=== PATIENT | male | born 1985 | race Caucasian/White ===

== ENCOUNTER 2019-04-03 17:16 | Emergency (ER) | payer OTHER ==
[~2019-04-03] VITALS: Ht 167.6 cm; Wt 149.7 kg
[2019-04-03] MEDS ORDERED: ALLOPURINOL 10100 M1 PO (17:22)
[2019-04-03 18:05] LABS: ABSOLUTE NEUTROPHILS 6.8 thou/uL (1.4-8.2); BASOPHILS 0.9 % (0.0-2.0); EOSINOPHILS 1.4 % (0.0-3.0); HEMATOCRIT 40.6 % (42.0-52.0); HEMOGLOBIN 13.2 gm/dL (14.0-18.0); LYMPHOCYTES 32.2 % (24.0-44.0); MCH 27.6 pg (26.0-34.0); MCHC 32.4 g/dL (28.0-37.0); POLYS 59.5 % (36.0-66.0); RBC 4.78 mil/uL (4.50-6.00); RDW 14.2 % (10.5-14.5); WBC 11.4 thou/uL (4.0-11.0)
[2019-04-03 18:17] LABS: ANION GAP 9 mmol/L (7-16); BUN 14 mg/dL (7-18); CALCIUM 9.1 mg/dL (8.5-10.1); CHLORIDE 100 mmol/L (98-107); CO2 27 mmol/L (21-32); CREATININE 1.1 mg/dL (0.7-1.3); GLUCOSE 90 mg/dL (74-106); POTASSIUM 3.9 mmol/L (3.5-5.1); SODIUM 136 mmol/L (136-145)
[2019-04-03 18:27] LABS: ALBUMIN 3.7 g/dL (3.4-5.0); SGOT 34 U/L (15-37); SGPT 49 U/L (30-65); TOTAL BILIRUBIN 0.3 mg/dL (<0.1-1.0); TOTAL PROTEIN 8.2 g/dL (6.4-8.2); TROPONIN-I <0.06 ng/mL (<0.06)
[2019-04-03 18:36] LABS: PLATELET COUNT 321 thou/uL (150-400)
[2019-04-03 19:26] VITALS: BP 120/62
[2019-04-03] MEDS ORDERED: CARAFATE 1 GM TA1 GM PO (20:17)
--- NOTE | 2019-04-04 08:03 | EKG ---
[place] [address] [place] [address] ELECTROCARDIOGRAM REPORT Name: JEY LAY Room #: [facility] ROSALINDA German#: [id number] Admission: 04/03/19 Attend Phys: Discharge: 04/03/19 Date of : 89 Report #: [id number] THIS REPORT FOR: //name// [facility] ED Test Date: 2019-04-03 Test Time: 17:21:31 Pat Name: JEY LAY Department: Room: Gender: [employer] Former Supervisor: TJ : 1985 Requested By: Rob Werner Order Number: [id number] MD: Placido Hawthorne Measurements Intervals [place] Rate: 78 P: 37 VT: 151 QRS: 37 QRSD: 98 T: 16 QT: 348 QTc: 397 Interpretive Statements Sinus rhythm Normal tracing No previous ECG available for comparison Electronically Signed On 04-04-2019 8:02:58 CDT by Placido Hawthorne [email or web address] <ELECTRONICALLY SIGNED> By: Placido Hawthorne MD, [facility] 04/04/19 0802 1721 1721 Placido Hawthorne MD, FACC /EPI
== END 2019-04-03 20:31 | disposition home or self-care (01) ==
LOC: ER 17:16
PROVIDERS: Emergency Medicine
DX: R07.9 Chest pain, unspecified (principal); M10.9 Gout, unspecified; E66.9 Obesity, unspecified; Z68.43 Body mass index [BMI] 50.0-59.9, adult